=== PATIENT | male | born 1955 | race Caucasian/White ===

== ENCOUNTER 2024-12-24 09:06 | Outpatient (CLI) | payer MEDICARE, BC, SELFPAY ==
--- NOTE | 2024-12-24 06:00 | DI.RAD_ITS ---
Exam(s) XR PAIN CLINIC SACRIOILIAC 2V EXAM: XR PAIN CLINIC SACRIOILIAC 2V CLINICAL HISTORY: DX: Sacroiliac Dysfunction TECHNIQUE: 2D and realtime digital imaging was performed. CONTRAST MATERIAL: Refer to procedure report. COMPARISON: No exams were available for comparison FINDINGS: Fluoroscopy was provided for Dr. Ramirez during the performance of a right sacroiliac joint injectio n. Please refer to the procedure report for complete details. Ka,r=33.7 mGy IMPRESSION: RADIATION DOSE DELIVERED: 0.0 0.0 0
[2024-12-24 09:22] VITALS: BP 134/77; PULSE 78; RESP 20; TEMP 36.7; O2SAT 97
--- NOTE | 2024-12-24 10:05 | PDOC.PAIN_ITS ---
Date of service: 12/24/24 Time of Service: 10:10 Pain Managment Procedure Note Procedure Note Procedure Note: ?Sacroiliac Joint Steroid Injection ? Location: ? Right SI Joint? Pre-procedure Diagnosis: Sacroiliitis, not elsewhere classified - M46.1 ? Post-procedure Diagnosis:? The same as above ? Sedation:? NONE ? Medication: Depo-Medrol 40 mg, bupivacaine 0.5% 1 mL, Omnipaque 0.25 mL per joint ? Estimated blood loss:? less than 2 cc ? Surgeon:? Leoncio Ramirez MD ? COMMENT: THIS WILL BE BOTH DIAGNOSTIC AND THERAPEUTIC ? Procedure Detail:? The procedure and potential risks were explained to the patient and informed written consent was obtained. The patient was escorted to the procedure room and placed in the prone position. Pillows were utilized for proper positioning and comfort. Time out was performed in the procedure room with nursing staff confirming the patient's identity, procedure to be performed, allergies, and any blood thinning or anti-platelet medications. The patient's lumbosacral area was prepped with ChloraPrep and draped in a sterile fashion. Sterile technique was maintained throughout the procedure.? Sterile gloves were used, a face mask was worn, and new single dose vials of all medications were used with the top being swabbed with alcohol and given time to dry prior to withdrawal of medication. Lidocaine 1% was used to anesthetize the skin. With fluoroscopic guidance, a 22-gauge 5 spinal needle was advanced into the posteroinferior aspect of the Right SI joint . Confirmation of intra-articular position of the needle tip was obtained with i njection of 0.25cc of Omnipaque 240 contrast which showed appropriate spread within the joint.? Following negative aspiration, 40mg of methylprednisolone mixed with 1 mL of bupivacaine 0.5% was injected.? The needle was gently removed. ?The patient tolerated the procedure well and was transported to the recovery area for observation and discharge instructions.? Permanent images saved and recorded. Plan:? Follow up prn. PAIN PRE PROCEDURE 4/10 POST PROCEDURE 0/10 COMMENT: 100 % BETTER AFTER INJECTION. Consider lumbar medial branch blocks bilaterally at L 3 4 and 5 and possible radiofrequency ablation. For the right thigh pain he might respond to a right L2 transforaminal steroid injection. ?
[2024-12-24] MEDS: Nerve Block Tray 1 EACH MC (10:10)
[2024-12-24] MEDS: Bupivacaine 0.5% Pres-Free 10 ML VIAL IJ (10:10)
[2024-12-24] MEDS: methylPREDNISolone ACETATE 80 MG/ML VIAL IJ (10:11)
[2024-12-24] MEDS: Omnipaque 240 MG/ML 50 ML BTL IJ (10:12)
== END 2024-12-24 09:07 | disposition home or self-care (01) ==
LOC: PC 09:08
PROVIDERS: PCP Internal Medicine; Visit Provider Anesthesiology Pain Medicine
DX: M54.50 Low back pain, unspecified (principal); M46.1 Sacroiliitis, not elsewhere classified
CPT/HCPCS: 00123; 27096; 72200; J0665; J1010; Q9967

== ENCOUNTER 2025-01-21 10:19 | Outpatient (CLI) | payer MEDICARE, BC, SELFPAY ==
--- NOTE | 2025-01-21 08:04 | PDOC.PAIN_ITS ---
Date of service: 01/21/25 Time of Service: 11:46 Pain Managment Procedure Note Procedure Note Procedure Note: Lumbar Medial Branch Block ? Location: Bilateral Medial Branches ? Levels: L3,4,5? (L4-5, L5-S1 FACET) ? Pre-procedure Diagnosis: M47.817 Spondylosis without myelopathy or radiculopathy, lumbosacral region M47.816 Spondylosis without myelopathy or radiculopathy, lumbar region ? Post-procedure Diagnosis:? The same as above ? Sedation: NONE? Estimated blood loss:? less than 2 cc ? Surgeon:? Leoncio Ramirez MD COMMENT: PRE PROCEDURE PAIN SCORE: 4/10. Patient has multiple findings on his spine MRI including multilevel spinal stenosis and lipomatosis. Degenerative disc disease with Modic I and II at multiple levels as well as facet arthropathy . ? Procedure Detail:? The procedure and potential risks were explained to the patient and informed written consent was obtained. The patient was escorted to the procedure room and placed in the prone position. Pillows were utilized fo r proper positioning and comfort.? Time out was performed in procedure room with nursing staff confirming the patient's identity, procedure to be performed, allergies, and any blood thinning or anti-platelet medications. The patient's lower back was prepped with chlorhexidine and draped in a sterile fashion. Sterile technique was maintained throughout the procedure.? Sterile gloves were used, a face mask was worn, and new single dose vials of all medications were used with the top being swabbed with alcohol and given time to dry prior to withdrawal of medication.? A left AND right-sided oblique fluoroscopic view was obtained, with visualization of the: ?RIGHT and LEFT L3,4 and DORSAL RAMUS L5 AT SACRAL ALA ? junction of the transverse process and superior articular process. Lidocaine 1% was used to anesthetize the skin. A 5 22-gauge Quincke needle was advanced along the superior margin of the transverse process and lateral to the articular process.? It was directed inferiorly and medially so that the tip struck the junction of the base of the transverse process and the superior articular process. The needle was then walked over the superior aspect of the transverse process and advanced slightly along the course of the L3,4,5 medial branch nerves. Proper placement was verified in A/P, oblique and lateral views under fluoroscopy. At this location, following negative aspiration, 0.5cc 0.5% bupivacaine was injected.? The patient tolerated the procedure well and was transported to the recovery area for observation and discharge instructions. Permanent images saved and recorded. Follow-up:? The patient will return in 2 weeks for confirmatory LMBBs if they? meet the criteria from today's procedure lasting for at least 2 hours.? COMMENT:Pain went from 4/10 to 3/10. Before the patient left patient had greater than 25% pain relief. USE 150MM NEEDLE IF GOES TO RF
[2025-01-21 10:38] VITALS: BP 154/78; PULSE 87; RESP 20; TEMP 37.3; O2SAT 98
[2025-01-21 10:59] VITALS: PULSE 95; O2SAT 96
[2025-01-21 11:00] VITALS: PULSE 88; O2SAT 97
[2025-01-21 11:10] VITALS: PULSE 93; O2SAT 96
[2025-01-21 11:20] VITALS: PULSE 89; O2SAT 96
--- NOTE | 2025-01-21 11:23 | DI.RAD_ITS ---
Exam(s) XR PAIN CLINIC LUMBAR SP 2V EXAM: XR PAIN CLINIC LUMBAR SP 2V CLINICAL HISTORY: Dx: Lumbar Spondylosis. TECHNIQUE: Fluoroscopy was provided for the referring physician for guidance with performing pain cl inic injection procedure. COMPARISON: No exams were available for comparison FINDINGS: Please see procedure note for details. Fluoro time: 39.8 seconds RADIATION DOSE DELIVERED: matilda Orr=34.8 mGy
[2025-01-21] MEDS: Nerve Block Tray 1 EACH MC (11:26)
[2025-01-21] MEDS: Bupivacaine 0.5% Pres-Free 10 ML VIAL IJ (11:27)
== END 2025-01-21 10:20 | disposition home or self-care (01) ==
LOC: PC 10:19
PROVIDERS: PCP Internal Medicine; Visit Provider Anesthesiology Pain Medicine
DX: M54.50 Low back pain, unspecified (principal); M47.817 Spondylosis without myelopathy or radiculopathy, lumbosacral region; M47.816 Spondylosis without myelopathy or radiculopathy, lumbar region
CPT/HCPCS: 00123; 64493; 64494; 72100; J0665

== ENCOUNTER 2025-02-26 10:04 | Outpatient (CLI) | payer MEDICARE, BC, SELFPAY ==
[2025-02-26 10:15] VITALS: BP 127/72; PULSE 87; RESP 18; TEMP 36.6; O2SAT 96
--- NOTE | 2025-02-26 10:25 | PDOC.PAIN_ITS ---
Date of service: 02/26/25 Time of Service: 10:56 Pain Managment Procedure Note Procedure Note Procedure Note: Location: Bilateral Medial Branches ? Levels: L3,4,5? (L4-5, L5-S1 FACET) ? Pre-procedure Diagnosis: M47.817 Spondylosis without myelopathy or radiculopathy, lumbosacral region M47.816 Spondylosis without myelopathy or radiculopathy, lumbar region ? Post-procedure Diagnosis:? The same as above ? Sedation: NONE? Estimated blood loss:? less than 2 cc ? Surgeon:? Leoncio Ramirez MD COMMENT: Patient had? GREATER THAN 80 % relief after the first medial branch block for greater than the duration of the local anesthetic.? Patient has multiple findings on his spine MRI including multilevel spinal stenosis and lipomatosis. Degenerative disc disease with Modic I and II at multiple levels as well as facet arthropathy. PRE PROCEDURE PAIN SCORE: 5/10 ? Procedure Detail:? The procedure and potential risks were explained to the patient and informed written consent was obtained. The patient was escorted to the procedure room and placed in the prone position. Pillows were utilized for proper positioning and comfort.? Time out was performed in procedure room with nursing staff confirming the patient's identity, procedure to be performed, allergies, and any blood thinning or anti-platelet medications. The patient's lower back was prepped with chlorhexidine and draped in a sterile fashion. Sterile technique was maintained throughout the procedure.? Sterile gloves were used, a face mask was worn, and new single dose vials of all medications were used with the top being swabbed with alcohol and given time to dry prior to withdrawal of medication.? A left and right-sided oblique fluoroscopic view was obtained, with visualization of the: ?RIGHT and LEFT L3,4 and DORSAL RAMUS L5 AT SACRAL ALA ? junction of the transverse process and superior articular process. Lidocaine 1% was used to anesthetize the skin. A 22-gauge Quincke needle was advanced along the superior margin of the transverse process and lateral to the articular process.? It was directed inferiorly and medially so that the tip struck the junction of the base of the transverse process and the superior articular process. The needle was then walked over the superior aspect of the transverse process and advanced slightly along the course of the L3,4,5 medial branch nerves. Proper placement was verified in A/P, oblique and lateral views under fluoroscopy. At this location, following negative aspiration, 0.5cc 2% lidocaine was injected.? The patient tolerated the procedure well and was discharged home with instructions. Permanent images saved and recorded. Follow-up:?? [Will plan to proceed with lumbar medial branch RFA if the patient gets good relief from today's procedure lasting for at least 2 hours.] COMMENT:Pain went from 4/10 to 2/10. Before the patient left patient had 50% pain relief.USE 150MM NEEDLE IF GOES TO RF. Patient she was diagnosed with rheumatoid arthritis. Coding Conscious Sedation used for procedure: No CPT Codes: LMBB (includes Fluoro) Lumbar/Sacral, single lvl *BILATERAL* - [id number] ([id number]~G5) LMBB (includes Fluoro) Lumbar/Sacral, 2nd lvl - 47360 ([id number] ~G) LT - LEFT SIDE, RT - RIGHT SIDE Additional Codes: Date of Service (61008) Date of service: 02/26/25
[2025-02-26 10:33] VITALS: PULSE 102; O2SAT 96
[2025-02-26 10:40] VITALS: PULSE 92; O2SAT 95
[2025-02-26] MEDS: Nerve Block Tray 1 EACH MC (10:54)
[2025-02-26] MEDS: Lidocaine 2% Pres-Free 5 ML VIAL IJ (10:54)
--- NOTE | 2025-02-26 10:54 | DI.RAD_ITS ---
Exam(s) XR PAIN CLINIC LUMBAR SP 2V EXAM: XR PAIN CLINIC LUMBAR SP 2V CLINICAL HISTORY: Dx: Lumbar Spondylosis TECHNIQUE: 2D and realtime digital imaging was performed. CONTRAST MATERIAL: Refer to procedure report. COMPARISON: No exams were available for comparison FINDINGS: Fluoroscopy was provided for Dr. Ramirez during the performance of a lumbar medial branch block. Pl ease refer to the procedure report for complete details. Ka,r=27.5 mGy IMPRESSION: RADIATION DOSE DELIVERED: 0.0 0.0 0
== END 2025-02-26 10:05 | disposition home or self-care (01) ==
PROVIDERS: PCP Internal Medicine; Visit Provider Anesthesiology Pain Medicine
DX: M54.50 Low back pain, unspecified (principal); M47.816 Spondylosis without myelopathy or radiculopathy, lumbar region; M47.817 Spondylosis without myelopathy or radiculopathy, lumbosacral region
CPT/HCPCS: 64493; 64494; 72100

== ENCOUNTER 2025-04-02 11:48 | Outpatient (CLI) | payer MEDICARE, BC, SELFPAY ==
[2025-04-02] VITALS (14 sets, daily range): BP systolic 141–182; BP diastolic 77–136; PULSE 85–93; RESP 10–25; TEMP 36.7; O2SAT 96–99
--- NOTE | 2025-04-02 06:00 | DI.RAD_ITS ---
Exam(s) XR PAIN CLINIC LUMBAR SP 2V EXAM: XR PAIN CLINIC LUMBAR SP 2V CLINICAL HISTORY: Dx: Lumbar Spondylosis. TECHNIQUE: Fluoroscopy was provided for the referring physician for guidance with performing pain cl inic injection procedure. COMPARISON: No exams were available for comparison FINDINGS: Please see procedure note for details. Fluoro time: 78.2 seconds RADIATION DOSE DELIVERED: Kirbyr=69.9 mGy
--- NOTE | 2025-04-02 12:35 | PDOC.PAIN2_ITS ---
History of Present Illness History of Present Illness History of Present Illness: Sedation template: Mr. Burt is here today for lumbar RF with moderate sedation.? Pre-procedure assessment was made and no contraindications to proceed were identified.? Patient's cardiovascular status and respiratory status were monitored and stable throughout the course of the procedure.? Patient was able to respond? purposefully to verbal commands.? There were no interventions required to maintain a patent airway and spontaneous ventilation was adequate.? At the termination of the procedure patient's vital signs were stable.? The patient was alert and oriented x 3.? The intravenous line was discontinued and patient di scharged home with designated jinriksha driver along with post-procedure instructions. Medications used: ? Midazolam 1 milligrams ? Fentanyl??75 micrograms Review of Systems Medications/Allergies Allergies Allergy/AdvReac Type Severity Reaction Status Date / Time egg Allergy Severe Anaphylaxis Verified 04/02/25 12:05 hydromorphone Allergy Intermediate Skin Rash Verified 04/02/25 12:05 Penicillins Allergy Intermediate Hives Verified 04/02/25 12:05 sulfamethoxazole (From Allergy Intermediate Hives Verified 04/02/25 12:05 Sulfamethoxazole-Trimethoprim) tramadol Allergy Intermediate Skin Rash Verified 04/02/25 12:05 trimethoprim (From Allergy Intermediate Hives Verified 04/02/25 12:05 Sulfamethoxazole-Trimethoprim) Medications: Current Medications Bupivacaine HCl (Bupivacaine 0.25% Pres-Free 30 Ml Vial) 0 ml IJ DIRECTED ALISON Stop: 04/02/25 23:59 Bupivacaine HCl (Bupivacaine 0.5% Pres-Free 10 Ml Vial) 0 ml IJ DIRECTED ALISON Stop: 04/02/25 23:59 Bupivacaine HCl (Bupivacaine 0.5% Pres-Free 30 Ml Vial) 0 ml IJ DIRECTED ALISON Stop: 04/02/25 23:59 Dexamethasone Sodium Phosphate (Dexamethasone Sod. Phos./Pres-Free 10 Mg/Ml Vial) 0 mg IJ DIRECTED ALISON Stop: 04/02/25 23:59 Diphenhydramine HCl (Diphenhydramine 25 Mg Cap) 25 mg PO DIRECTED ALISON Stop: 04/02/25 23:59 Diphenhydramine HCl (Diphenhydramine 50 Mg/Ml Vial) 25 mg IVP DIRECTED ALISON Stop: 04/02/25 23:59 Diphenhydramine HCl (Diphenhydramine 50 Mg/Ml Vial) 50 mg IVP DIRECTED ALISON Stop: 04/02/25 23:59 Fentanyl (Fentanyl 100 Mcg/2 Ml Vial) 0 mcg IVP DIRECTED ALISON Stop: 04/02/25 23:59 Lidocaine HCl (Lidocaine 1% Pres-Free 5 Ml Vial) 0 ml IJ DIRECTED ALISON Stop: 04/02/25 23:59 Lidocaine HCl (Lidocaine 1% Pres-Free 30 Ml Vial) 0 ml IJ DIRECTED ALISON Stop: 04/02/25 23:59 Lidocaine HCl (Lidocaine 2% Pres-Free 2 Ml Vial) 0 ml IJ DIRECTED ALISON Stop: 04/02/25 23:59 Lidocaine HCl (Lidocaine 2% Pres-Free 5 Ml Vial) 0 ml IJ DIRECTED ALISON Stop: 04/02/25 23:59 Lidocaine HCl (Lidocaine 2% Multi-Dose 20 Ml Vial) 0 ml IJ DIRECTED ALISON Stop: 04/02/25 23:59 Methylprednisolone Acetate (Methylprednisolone Acetate 80 Mg/Ml Vial) 0 mg IJ DIRECTED ALISON Stop: 04/02/25 23:59 Methylprednisolone Acetate (Methylprednisolone Acetate 40 Mg/Ml Vial) 0 mg IJ DIRECTED ALISON Stop: 04/02/25 23:59 Midazolam HCl (Midazolam 2 Mg/2 Ml Vial) 0 mg IVP DIRECTED ALISON Stop: 04/02/25 23:59 Miscellaneous (Nerve Block Tray) 1 each MC DIRECTED ALISON Stop: 04/02/25 23:59 Ondansetron HCl (Ondansetron 4 Mg/2 Ml Vial) 0 mg IJ DIRECTED ALISON Stop: 04/02/25 23:59 Sodium Chloride (Normal Saline 20 Ml Vial) 0 ml IJ DIRECTED ALISON Stop: 04/02/25 23:59 Sodium Chloride (Normal Saline Flush 10 Ml Syr) 0 ml IVP PRN PRN Stop: 04/02/25 23:59 Objective Exam Vitals and I&O: Vital Signs Temperature 36.7 C 04/02/25 11:54 Pulse 87 04/02/25 11:54 Respiratory Rate 20 04/02/25 11:54 Blood Pressure 141/77 H 04/02/25 11:54 Pulse Oximetry 99 04/02/25 11:54 Oxygen Delivery Method Room Air 04/02/25 11:54 Oxygen Flow Rate 0 04/02/25 11:54 Intake & Output 04/01/25 04/02/25 04/02/25 23:59 11:59 23:59 Weight 149.685 kg Ambulatory Orders ?Medication ?Instructions ?Recorded artificial tears ophthalmic ophthalmic (eye) PRN 11/27/24 solution aspirin 81 mg tablet,delayed 81 mg PO DAILY 11/27/24 release (Adult Aspirin Regimen) finasteride 5 mg tablet 5 mg PO DAILY 11/27/24 fluticasone propionate 50 1 spray intranasal DAILY 11/27/24 mcg/actuation nasal spray,suspension loratadine 10 mg tablet (Allergy 10 mg PO DAILY 11/27/24 Relief (loratadine)) losartan 50 mg tablet 50 mg PO DAILY 11/27/24 methotrexate sodium 2.5 mg tablet 2.5 mg PO QWEEK 11/27/24 omeprazole 20 mg tablet,delayed 20 mg PO BID 11/27/24 release venlafaxine 75 mg tablet 150 mg PO BID 11/27/24 ferrous sulfate 325 mg (65 mg 325 mg PO Q OTHER DAY 12/10/24 iron) tablet,delayed release tamsulosin 0.4 mg capsule 0.4 mg PO QHS 12/10/24
[2025-04-02] MEDS: Midazolam 2 MG/2 ML VIAL IVP (12:40)
[2025-04-02] MEDS: fentaNYL 100 MCG/2 ML VIAL IVP ×2 (12:40→13:05)
[2025-04-02] MEDS: Lactated Ringers 500 ML 80 ML IV (12:59)
[2025-04-02] MEDS: Lidocaine 2% Multi-Dose 20 ML VIAL IJ (13:25)
[2025-04-02] MEDS: Nerve Block Tray 1 EACH MC (13:25)
--- NOTE | 2025-04-02 13:26 | PDOC.PAIN ---
Date of service: 04/02/25 Time of Service: 13:30 Pain Managment Procedure Note Procedure Note Procedure Note: Lumbar Medial Branch COOLED Radiofrequency Ablation COMMENT: [Patient had greater than 80 % relief after 2 medial branch blocks .] ? Location: Bilateral L3, and L4 medial Branches and dorsal ramus of L5 (L4-5, and L5-S1 joints) ? Pre-procedure Diagnosis: M47.817 Spondylosis without myelopathy or radiculopathy, lumbosacral region ? Post-procedure Diagnosis:? The same as above ? Sedation:?Intravenous line started 1mg of intravenous midazolam and fentanyl 75 mcg?were administered. An independent trained observer monitored the patient for the duration of the procedure.? Estimated blood loss:? less than 2 cc ? Surgeon: Leoncio Ramirez MD ? Procedure Detail:? The procedure and potential risks were explained to the patient and informed written consent was obtained. The patient was escorted to the procedure room and placed in the prone position. Pillows were utilized for proper positioning and comfort. Time out was performed in the procedure room with nursing staff confirming the patient's identity, procedure to be performed, allergies, and any blood thinning or anti-platelet medications. The patient's lower back was prepped with ChloraPrep and draped in a sterile fashion.? Sterile technique was maintained throughout the procedure.? Sterile gloves were used, a face mask was worn, and new single dose vials of all medications were used with the top being swabbed with alcohol and given time to dry prior to withdrawal of medication. A left AND right-sided oblique fluoroscopic view was obtained, with visualization of the L4 junction of the transverse process and superior articular process. 2% lidocaine was used to anesthetize the skin. With fluoroscopic guidance, an 15 mm 17 gauge 4mm active tip RF cannula was advanced to the superior margin of the transverse process and lateral to the superior articular process.? It was directed inferiorly and medially so that the tip struck the junction of the base of the transverse process and the superior articular process. The needle was then slightly advanced along the course of the L3 medial branch nerve. Proper placement was verified with oblique, AP, and lateral fluoroscopic views. Sensory tested with good response less than 1V. Motor testing was performed and was negative at 2V except for expected multifidus activation. A similar procedure was also performed at the ipsilateral L4 medial branch nerves and the dorsal ramus of L5 with negative motor testing at 2V except for expected multifidus activation. One cc of 2% lidocaine was injected through each needle tip to anesthetize the medial branch nerves.? After waiting for the local anesthetic to take effect, each nerve was then ablated at 60 degrees Celsius for 150 seconds. This was repeated on the opposite side at the same levels. The patient was monitored for any severe pain or radicular pain during the ablation and reported none. The patient tolerated the procedure well, and was discharged in stable condition.? Permanent images were saved and recorded. PAIN: PRE PROCEDURE 03/07 POST PROCEDURE 04/06 Plan: F/U PRN COMMENT: Repeat prn if 6 months relief of 50% Coding Conscious Sedation used for procedure: Yes CPT Codes: Moderate sedation; First 15 min - 61534 (89967) Moderate sedation; add. 15 increments - 04869 (90765) Single Facet Joint, Lumbar/Sacral cool - 54992K (70313Z54~G) bilat Single Facet Joint, Lumbar/Sacral cool each add'l - 21107S (22912B77~G) RT - RIGHT SIDE, LT - LEFT SIDE Additional Codes: Date of Service (49592) Date of service: 04/02/25
--- NOTE | 2025-04-02 13:32 | PDOC.PAIN2 ---
Review of Systems Medications/Allergies Allergies Allergy/AdvReac Type Severity Reaction Status Date / Time egg Allergy Severe Anaphylaxis Verified 04/02/25 12:05 hydromorphone Allergy Intermediate Skin Rash Verified 04/02/25 12:05 Penicillins Allergy Intermediate Hives Verified 04/02/25 12:05 sulfamethoxazole (From Allergy Intermediate Hives Verified 04/02/25 12:05 Sulfamethoxazole-Trimethoprim) tramadol Allergy Intermediate Skin Rash Verified 04/02/25 12:05 trimethoprim (From Allergy Intermediate Hives Verified 04/02/25 12:05 Sulfamethoxazole-Trimethoprim) Medications: Current Medications Bupivacaine HCl (Bupivacaine 0.25% Pres-Free 30 Ml Vial) 0 ml IJ DIRECTED ALISON Stop: 04/02/25 23:59 Bupivacaine HCl (Bupivacaine 0.5% Pres-Free 10 Ml Vial) 0 ml IJ DIRECTED ALISON Stop: 04/02/25 23:59 Bupivacaine HCl (Bupivacaine 0.5% Pres-Free 30 Ml Vial) 0 ml IJ DIRECTED ALISON Stop: 04/02/25 23:59 Dexamethasone Sodium Phosphate (Dexamethasone Sod. Phos./Pres-Free 10 Mg/Ml Vial) 0 mg IJ DIRECTED ALISON Stop: 04/02/25 23:59 Diphenhydramine HCl (Diphenhydramine 25 Mg Cap) 25 mg PO DIRECTED ALISON Stop: 04/02/25 23:59 Diphenhydramine HCl (Diphenhydramine 50 Mg/Ml Vial) 25 mg IVP DIRECTED ALISON Stop: 04/02/25 23:59 Diphenhydramine HCl (Diphenhydramine 50 Mg/Ml Vial) 50 mg IVP DIRECTED ALISON Stop: 04/02/25 23:59 Fentanyl (Fentanyl 100 Mcg/2 Ml Vial) 0 mcg IVP DIRECTED ALISON Stop: 04/02/25 23:59 Last Admin: 04/02/25 13:05 Dose: 25 mcg Lidocaine HCl (Lidocaine 1% Pres-Free 5 Ml Vial) 0 ml IJ DIRECTED ALISON Stop: 04/02/25 23:59 Lidocaine HCl (Lidocaine 1% Pres-Free 30 Ml Vial) 0 ml IJ DIRECTED ALISON Stop: 04/02/25 23:59 Lidocaine HCl (Lidocaine 2% Pres-Free 2 Ml Vial) 0 ml IJ DIRECTED ALISON Stop: 04/02/25 23:59 Lidocaine HCl (Lidocaine 2% Pres-Free 5 Ml Vial) 0 ml IJ DIRECTED ALISON Stop: 04/02/25 23:59 Lidocaine HCl (Lidocaine 2% Multi-Dose 20 Ml Vial) 0 ml IJ DIRECTED ALISON Stop: 04/02/25 23:59 Last Admin: 04/02/25 13:25 Dose: 16 ml Methylprednisolone Acetate (Methylprednisolone Acetate 80 Mg/Ml Vial) 0 mg IJ DIRECTED ALISON Stop: 04/02/25 23:59 Methylprednisolone Acetate (Methylprednisolone Acetate 40 Mg/Ml Vial) 0 mg IJ DIRECTED ALISON Stop: 04/02/25 23:59 Midazolam HCl (Midazolam 2 Mg/2 Ml Vial) 0 mg IVP DIRECTED ALISON Stop: 04/02/25 23:59 Last Admin: 04/02/25 12:40 Dose: 1 mg Miscellaneous (Nerve Block Tray) 1 each MC DIRECTED ALISON Stop: 04/02/25 23:59 Last Admin: 04/02/25 13:25 Dose: 1 each Ondansetron HCl (Ondansetron 4 Mg/2 Ml Vial) 0 mg IJ DIRECTED ALISON Stop: 04/02/25 23:59 Sodium Chloride (Normal Saline 20 Ml Vial) 0 ml IJ DIRECTED ALISON Stop: 04/02/25 23:59 Sodium Chloride (Normal Saline Flush 10 Ml Syr) 0 ml IVP PRN PRN Stop: 04/02/25 23:59 Objective Exam Vitals and I&O: Vital Signs Temperature 36.7 C 04/02/25 11:54 Pulse 86 04/02/25 13:24 Pulse 90 04/02/25 13:10 Respiratory Rate 19 04/02/25 13:16 Blood Pressure 142/90 H 04/02/25 13:26 Blood Pressure Mean 107 04/02/25 13:26 Pulse Oximetry 96 04/02/25 13:16 Respiratory End-tidal CO2 38 04/02/25 13:16 Oxygen Delivery Method Room Air 04/02/25 11:54 Oxygen Flow Rate 0 04/02/25 11:54 Intake & Output 04/01/25 04/02/25 04/02/25 23:59 11:59 23:59 Weight 149.685 kg Ambulatory Orders ?Medication ?Instructions ?Recorded artificial tears ophthalmic ophthalmic (eye) PRN 11/27/24 solution aspirin 81 mg tablet,delayed 81 mg PO DAILY 11/27/24 release (Adult Aspirin Regimen) finasteride 5 mg tablet 5 mg PO DAILY 11/27/24 fluticasone propionate 50 1 spray intranasal DAILY 11/27/24 mcg/actuation nasal spray,suspension loratadine 10 mg tablet (Allergy 10 mg PO DAILY 11/27/24 Relief (loratadine)) losartan 50 mg tablet 50 mg PO DAILY 11/27/24 methotrexate sodium 2.5 mg tablet 2.5 mg PO QWEEK 11/27/24 omeprazole 20 mg tablet,delayed 20 mg PO BID 11/27/24 release venlafaxine 75 mg tablet 150 mg PO BID 11/27/24 ferrous sulfate 325 mg (65 mg 325 mg PO Q OTHER DAY 12/10/24 iron) tablet,delayed release tamsulosin 0.4 mg capsule 0.4 mg PO QHS 12/10/24
== END 2025-04-02 11:49 | disposition home or self-care (01) ==
LOC: PC 11:48
PROVIDERS: PCP Internal Medicine; Visit Provider Anesthesiology Pain Medicine
DX: M47.817 Spondylosis without myelopathy or radiculopathy, lumbosacral region (principal); M54.50 Low back pain, unspecified
CPT/HCPCS: 64635; 64636; 72100; J2003; J2250; J3010

== ENCOUNTER → 2025-06-07 09:53 | Outpatient (BNVA) | payer MEDICARE, BC, SELFPAY | PROVIDERS: PCP Internal Medicine; Referring Provider Internal Medicine; Visit Provider Physician Assistant | DX: M17.11 Unilateral primary osteoarthritis, right knee (principal); R63.5 Abnormal weight gain; Z68.43 Body mass index [BMI] 50.0-59.9, adult | CPT/HCPCS: 99203; 20610; J1010 ==